=== PATIENT | male | born 1990 | race African-American/Black ===

== ENCOUNTER 2017-11-23 00:34 | Emergency (ER) | payer OTHER ==
[2017-11-23] MEDS: IBUPROFEN 600 MG TAB PO (02:15)
[2017-11-23] MEDS: PSEUDOEPHEDRINE 30 MG TAB PO (02:15)
== END 2017-11-23 02:40 | disposition home or self-care (01) ==
LOC: M ED 00:34
DX: J06.9 Acute upper respiratory infection, unspecified (principal)
CPT/HCPCS: 99284

== ENCOUNTER 2018-05-17 19:25 | Emergency (ER) | payer OTHER ==
[~2018-05-17] VITALS: Ht 188 cm; Wt 93.2 kg
[~2018-05-17 19:25] MED LIST: IBUP-1022 PO; PSEU30TA21 PO
[2018-05-17 19:26] VITALS: BP 156/87
[2018-05-17] MEDS ORDERED: CYCL10TA PO (20:34)
[2018-05-17] MEDS ORDERED: KETO10TAB PO (20:34)
[2018-05-17] MEDS ORDERED: CYCLOBENZAPRINE 10 MG TAB PO ONE (20:45)
[2018-05-17] MEDS ORDERED: KETOROLAC TROMETHAMINE 10 MG TAB PO ONE (20:45)
== END 2018-05-17 20:59 | disposition home or self-care (01) ==
LOC: M ED 19:25
DX: S16.1XXA Strain of muscle, fascia and tendon at neck level, initial encounter (principal); V89.2XXA Person injured in unspecified motor-vehicle accident, traffic, initial encounter; Y92.410 Unspecified street and highway as the place of occurrence of the external cause

== ENCOUNTER 2018-05-21 17:30 | Emergency (ER) | payer OTHER ==
[~2018-05-21] VITALS: Ht 182.9 cm; Wt 93.2 kg
[~2018-05-21 17:30] MED LIST changes: +CYCL10TA PO; +KETO10TAB PO
[2018-05-21] MEDS ORDERED: NAPROXEN 250 MG TAB PO ONE (20:30)
[2018-05-21 20:52] VITALS: BP 136/85
--- NOTE | 2018-05-22 08:16 | REP ---
Thoracic spine three views: Vertebral body heights are normal. No compression deformities. Alignment is normal. There is no listhesis. There is scoliosis convex right in the mid thoracic spine. Mineralization is normal. Pedicles are unremarkable. Impression: Scoliosis. No compression deformity. Otherwise, negative thoracic spine. Electronically Signed by Quinn Ly MD 05/22/2018 08:07 A
--- NOTE | 2018-05-22 12:05 | REP ---
LEFT WRIST: Four views left wrist are performed. No fracture is seen. There may be mild dorsal displacement of the distal end of the ulna. IMPRESSION: No acute fracture. Possible mild dorsal displacement of the distal ulna may indicate underlying ligamentous disruption. Electronically Signed by Quinn Fry MD 05/22/2018 11:29 P
--- NOTE | 2018-05-23 12:13 | ED PDOC ---
Post-Departure Follow-Up ft george subramanian faxed formal report of left wrist film for fu Chris Medellin MD May 23, 2018 12:13
== END 2018-05-21 20:58 | disposition home or self-care (01) ==
LOC: M ED 17:30
DX: S63.095A Other dislocation of left wrist and hand, initial encounter (principal); W00.9XXA Unspecified fall due to ice and snow, initial encounter; Y92.89 Other specified places as the place of occurrence of the external cause; M54.9 Dorsalgia, unspecified

== ENCOUNTER 2019-02-14 22:33 | Inpatient (IN) | payer OTHER ==
[~2019-02-14] VITALS: Ht 182.9 cm; Wt 99.5 kg
[2019-02-14] MEDS ORDERED: ASPI81TA85 PO (22:51)
[2019-02-14] MEDS ORDERED: NITROGLYCERIN 0.4 MG SUBL TABLET SL PRN (23:15)
[2019-02-14] MEDS ORDERED: ASPIRIN 81 MG CHEW TABLET PO ONE (23:15)
[2019-02-14 23:18] LABS: BASO % 0.4 % (0.0-1.0); EOS # 0.1 10^3/uL (0.0-0.5); EOS % 1.3 % (0.0-3.0); HEMATOCRIT 40.4 % (42.0-52.0); LYMPH # 3.2 10^3/uL (1.5-5.0); MEAN CORPUSCULAR HEMOGLOBIN 27.6 pg (27.0-33.0); MEAN CORPUSCULAR HGB CONC 32.2 g/dl (32.0-36.5); MEAN CORPUSCULAR VOLUME 85.8 fl (80.0-96.0); MONO # 0.5 10^3/uL (0.0-0.8); MONO % 7.6 % (0.0-5.0); NEUTROPHILS % 43.6 % (36.0-66.0); PLATELET COUNT, AUTOMATED 256 10^3/uL (150-450); RED BLOOD COUNT 4.71 10^6/uL (4.30-6.10); WHITE BLOOD COUNT 6.8 10^3/uL (4.0-10.0)
[2019-02-14 23:30] LABS: INR 1.03; PARTIAL THROMBOPLASTIN TIME 28.1 SECONDS (25.0-38.4); PROTHROMBIN TIME 13.3 SECONDS (11.8-14.0)
[2019-02-15 00:34] LABS: ALBUMIN 4.1 GM/DL (3.2-5.2); ALT/SGPT 78 U/L (12-78); BILIRUBIN,DIRECT 0.1 MG/DL (0.0-0.2); BILIRUBIN,TOTAL 0.3 MG/DL (0.2-1.0); BLOOD UREA NITROGEN 15 MG/DL (7-18); CARBON DIOXIDE LEVEL 29 MEQ/L (21-32); CHLORIDE LEVEL 106 MEQ/L (98-107); CK-MB VALUE MASS 3.9 NG/ML (<3.6); CPK CREATINE PHOSPHOKINASE 1507 U/L (39-308); CREATININE FOR GFR 1.23 MG/DL (0.70-1.30); FREE T4 0.88 NG/DL (0.76-1.46); GLOMERULAR FILTRATION RATE > 60.0 (>60); GLUCOSE, FASTING 89 MG/DL (70-100); LIPASE 130 U/L (73-393); MB/CK RELATIVE INDEX 0.26 (< OR =4); POTASSIUM SERUM 3.8 MEQ/L (3.5-5.1); SODIUM LEVEL 142 MEQ/L (136-145); TOTAL PROTEIN 7.7 GM/DL (6.4-8.2); TROPONIN I < 0.02 NG/ML (< 0.10)
[2019-02-15] MEDS ORDERED: ISOVUE-370 76% 100ML VIAL (Q9967) As Ordered ONE (00:40)
[2019-02-15] MEDS ORDERED: NS 1,000 ML IV ONE ×4 (00:45→03:30)
--- NOTE | 2019-02-15 01:17 | REPVR ---
PROCEDURE INFORMATION: Exam: CT Angiography Chest With Contrast Exam date and time: 02/15/2019 12:35 AM Clinical history: 28 years old, male; Left-sided chest pain; Additional Info: L pleuritic chest pain TECHNIQUE: Imaging protocol: Computed tomographic angiography of the chest with intravenous contrast. 3D rendering: MIP reconstructed images were created and reviewed. Radiation optimization: All CT scans at this facility use at least one of these dose optimization techniques: automated exposure control; mA and/or kV adjustment per patient size (includes targeted exams where dose is matched to clinical indication); or iterative reconstruction. COMPARISON: CR Chest, 2 view PA, Lat 02/14/2019 11:14 PM FINDINGS: Limitations: Examination is limited by motion artifact. Pulmonary arteries: Normal. No pulmonary emboli. Aorta: Suboptimal opacification of the aorta. No aortic aneurysm. No aortic dissection. Lungs: Unremarkable. No consolidation. No masses. Pleural space: Unremarkable. No pneumothorax. No pleural effusion. Heart: Unremarkable. No cardiomegaly. No pericardial effusion. Lymph nodes: Unremarkable. No enlarged lymph nodes. Bones/joints: Unremarkable. No acute fracture. Soft tissues: Unremarkable. IMPRESSION: 1. Negative for pulmonary embolism. 2. No CT findings to suggest source of left chest pain. Electronically signed by: Gita Sanchez On 02/15/2019 01:17:02 AM
[2019-02-15] MEDS ORDERED: ASPI-161 PO (01:49)
[2019-02-15] MEDS ORDERED: COLC1TAB13 PO (02:13)
--- NOTE | 2019-02-15 02:36 | HPEPDOC ---
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 He reports that his recently and since then he has been on leave and traveling, visiting family. . He did see urgent care for blood pressure check. On 01/10/2019 and was found to have blood pressure 164/102. This morning he attempted to work out but was easily winded. This evening, as he was sitting and watching TV he developed 8/10 chest pain on his left side that radiated to his back which feels very similar to his previous pericarditis pain. He is currently taking aspirin and another medication for which she cannot remember the name prescribed to him in [place] when he had pericarditis. He will see cardiology in [place] on 03/02/2019. REVIEW OF SYSTEMS: CONSTITUTIONAL: Feels well. No fever or chills HEENT: denies vision changes, no sinus problems, denies any trouble swallowing CARDIOVASCULAR: Reports sharp left-sided chest pain radiating to his back, with some tingling and numbness in upper extremities RESPIRATORY: Denies any shortness of breath GENITOURINARY: No dysuria MUSCULOSKELETAL: Denies any joint/muscle pain GASTROINTESTINAL: Denies abdominal pain, no nausea/vomiting/diarrhea SKIN: No new rashes or lesions NEUROLOGICAL: No loss of sensation PSYCHIATRIC: Reports normal mood, no delusions or hallucinations ENDOCRINE: No hot/cold intolerance HEMATOLOGIC/LYMPHATIC: No easy bruising, no lumps/bumps ALLERGIC/IMMUNOLOGIC: No sinus symptoms PAST MEDICAL HISTORY: 1. Pericarditis, diagnosed in [place] December 2018, treated with aspirin SOCIAL HISTORY: Denies smoking, denies alcohol, denies illicit drugs. Denies use of energy drinks FAMILY HISTORY: No cardiac history in the family ALLERGIES: Please see below. HOME MEDICATIONS: Please see below. PHYSICAL EXAMINATION: VITAL SIGNS: Please see below. GENERAL APPEARANCE: Laying in bed, appears stated age, no acute distress, calm, cooperative HEENT: EOMI, PERRLA, neck is supple with no thyromegaly or lymphadenopathy RESPIRATORY: Lungs are clear to auscultation bilaterally with no adventitious breath sounds appreciated CARDIOVASCULAR: no JVD, RRR,no murmurs/rubs/gallops, chest pain not reproducible with palpation ABDOMEN: Soft, nontender to palpation in all four quadrants, no masses/organomegaly EXTREMITIES: no clubbing, cyanosis or edema noted NEUROLOGICAL: No obvious focal deficits PSYCHIATRIC: normal mood/affect Skin: No rashes or ulcers. LN: No significant cervical or inguinal lymphadenopathy LABORATORY DATA: See below. IMAGING: CTA: FINDINGS: "Limitations: Examination is limited by motion artifact. Pulmonary arteries: Normal. No pulmonary emboli. Aorta: Suboptimal opacification of the aorta. No aortic aneurysm. No aortic dissection. Lungs: Unremarkable. No consolidation. No masses. Pleural space: Unremarkable. No pneumothorax. No pleural effusion. Heart: Unremarkable. No cardiomegaly. No pericardial effusion. Lymph nodes: Unremarkable. No enlarged lymph nodes. Bones/joints: Unremarkable. No acute fracture. Soft tissues: Unremarkable. IMPRESSION: 1. Negative for pulmonary embolism. 2. No CT findings to suggest source of left chest pain." EKG: NSR, bradycardia (58) with early repolarization but no ST changes MICROBIOLOGY: Please see below. 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 PLAN: 1. Chest pain: likely 2/2 recurrent pericarditis pain vs anxiety. The patient does report a significant amount of stress and physical symptoms of stress since his last November. -Troponins negative -EKG negative for ischemic event: NSR, bradycardia (58) with early repolarization but no ST changes -Continue ASA -Nitroglycerin PRN 2. Rhabdomyolysis: CK found to be 1507. Patient does report he may have overexe rted himself while exercising this morning. He has been on leave for several months and is just now starting to get back into exercise routine. -Normal saline IV fluids 150 mL/h -Will recheck CK level in a.m. 3. HTN: Likely 2/2 pain -Will monitor and treat as needed 4. Bereavement/mood disorder: -Patient will likely need psychiatry follow up in the outpatient setting DISPO: Pending improvement clinical course Vital Signs Vital Signs Date Time Temp Pulse Resp B/P (MAP) Pulse Ox O2 Delivery O2 Flow Rate FiO2 02/15/19 01:01 02/15/19 01:00 60 12 100 02/14/19 22:33 97.8 Room Air Laboratory Data Labs 24H Laboratory Tests 2 02/14/19 23:11: Immature Granulocyte % (Auto) 0.1, Neutrophils (%) (Auto) 43.6, Lymphocytes (%) (Auto) 47.0H, Monocytes (%) (Auto) 7.6H, Eosinophils (%) (Auto) 1.3, Basophils (%) (Auto) 0.4, Neutrophils # (Auto) 3.0, Lymphocytes # (Auto) 3.2, Monocytes # (Auto) 0.5, Eosinophils # (Auto) 0.1, Basophils # (Auto) 0.0, Nucleated Red Blood Cells % (auto) 0.0, Prothrombin Time 13.3, Prothromb Time International Ratio 1.03, Activated Partial Thromboplast Time 28.1, Anion Gap 7L, Glomerular Filtration Rate > 60.0, Calcium Level 9.0, Total Bilirubin 0.3, Direct Bilirubin 0.1, Aspartate Amino Transf (AST/SGOT) 52H, Alanine Aminotransferase (ALT/SGPT) 78, Alkaline Phosphatase 71, Total Creatine Kinase 1507H, Creatine Kinase MB 3.9H, Creatine Kinase MB Relative Index 0.26, Troponin I < 0.02, Total Protein 7.7, Albumin 4.1, Albumin/Globulin Ratio 1.14, Lipase 130, Thyroid Stimulating Hormone (TSH) 2.290, Free Thyroxine 0.88 CBC/BMP Laboratory Tests 02/14/19 23:11 Home Medications Scheduled Amlodipine Besylate (Norvasc) 5 Mg Tablet, 1 TAB PO DAILY Aspirin (Aspirin EC) 81 Mg Tablet.dr, 81 MG PO DAILY Allergies Coded Allergies: No Known Allergies (Unverified , 11/23/17) GME ATTESTATION GME ATTESTATION My faculty preceptor for this patient encounter was physically present during the encounter and was fully available. All aspects of the patient interview, examination, medical decision making process, and medical care plan development were reviewed and approved by the faculty preceptor. The faculty preceptor is aware and concurs with the plan as stated in the body of this note and will attest to such by his/her cosignature. ATTENDING NOTE I examined Mr. Jorge Alberto Son at approximately 1:45AM, discussed the case with and agree with the findings as documented with the addition of the following. is a 28 yr old M in active duty w PMH of pericarditis who presents w c/o of intermittent left sided chest pain that is similar to the pain that he had when he was diagnosed with pericarditis. He is unsure of the cause of the pericarditis and was unable to follow up with his doctors in [place]. His physical exam was unremarkable. The chest pain was not reproducable with palpation of the chest and had resolved at the time of evaluation. 1.Chest Pain The EKG showed ST segment elevation of greater than 2mm at V2-V4 along with cruz ges c/w LVH but his troponin was wnl. Non-ACS causes of EKG abnormalities include accelerated hypertension, significant LVH, SVTs, and cardiomyopathies Plan: admit to [facility] / telemetry / f/u serial EKGs and troponins / obtain records from [facility] in [place] to determine the cause of the pericarditis (viral, autoimmune ect ??) / manage HTN / the day time team can determine if an Echo is warranted to determine if he has LVH 2. Newly Diagnosed Hypertension His SBP was as high as the 160s His serum Ca & TSH were wnl therefore primary hyperparathyroidsm and hyperthyrodism are unlikely causes of his HTN The uncontrolled HTN is likey the reason for the EKG changes. Plan: start amlodipine 5mg daily / since he is fairly young he will need a work up to r/o secondary causes of HTN along with an ambulatory blood pressure monitor which can be done on an out patient basis. 3. Elevated CPK/Rhabdo -likely exercise induced as the patient reports that he has been more physically active lately as he is trying to "get back into shape" Plan: IVF/ trend CPK & Cr to ensure that he doesn't develop ARTURO 4.Pericarditis Plan:c/w ASA and Colchicine no need for DVT Px because he is ambulatory Disposition pending clinical course SAE YAN MD Feb 15, 2019 02:35 PATRICIA COELHO MD Feb 15, 2019 03:09
[2019-02-15] MEDS ORDERED: LISINOPRIL *2.5 MG* TAB PO SCH (03:15)
[2019-02-15 04:30] VITALS: BP 152/75
[2019-02-15] MEDS: NS 1,000 ML IV SCH ×3 (06:02→15:50)
[2019-02-15 07:07] LABS: TROPONIN I < 0.02 NG/ML (< 0.10)
--- NOTE | 2019-02-15 07:10 | ECGEPIP ---
[facility] - ED Test Date: 2019-02-15 Pat Name: SHANELL MUSTAFA Department: Room: [place] [address] Gender: Male [employer] Architect: GHULAM : 1990 Requested By: WYATT Kumar Order Number: [id number] Reading MD: Jack Adam Measurements Intervals [place] Rate: 59 P: 35 NC: 187 QRS: 28 QRSD: 96 T: 25 QT: 387 QTc: 386 Interpretive Statements SINUS BRADYCARDIA BENIGN EARLY REPOLARIZATION SIMILAR TO 02/14/19 Electronically Signed on 02-15-2019 7:10:11 EST by Jack Adam
--- NOTE | 2019-02-15 08:10 | REP ---
Clinical: Acute chest pain . Comparison: None . Technique: PA and lateral. Findings: The mediastinum and cardiac silhouette are normal. The lung amin are clear and without acute consolidation, effusion, or pneumothorax. The skeletal structures are intact and normal. Impression: 1. No acute cardiopulmonary process. Electronically Signed by Seun Blevins MD 02/15/2019 08:01 A
[2019-02-15 08:18] LABS: C REACTIVE PROTEIN QUANTITATIV < 0.30 MG/DL (0.00-0.30); CPK CREATINE PHOSPHOKINASE 1356 U/L (39-308)
--- NOTE | 2019-02-15 08:33 | ECGEPIP ---
[facility] Test Date: 2019-02-14 Pat Name: SHANELL MUSTAFA Department: Room: [place] [address] Gender: Male Transfer Professor: GHULAM : 1990 Requested By: ALYSSIA Kang PA-C Order Number: [id number] Reading MD: Charles Mejía Measurements Intervals [place] Rate: 58 P: 44 NC: 187 QRS: 37 QRSD: 98 T: 26 QT: 399 QTc: 395 Interpretive Statements Sinus bradycardia Early repolarization; correlate clinically Comparison tracing not on file Electronically Signed on 02-15-2019 8:33:09 EST by Charles Mejía
[2019-02-15 08:38] VITALS: BP 154/90
[2019-02-15] MEDS ORDERED: ASPIRIN 325 MG TAB PO SCH (09:00)
[2019-02-15 10:00] VITALS: BP 146/92
--- NOTE | 2019-02-15 11:14 | IPNPDOC ---
Text Note Date of Service The patient was seen on 02/15/19. 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 EKG was unremarkable, cardiac enzymes have been negative. Patient was examined this morning. he denied chest pain, denies shortness of breath, deny palpitation. His history significant for significant personal sadness, his in november of this year. OBJECTIVE: PHYSICAL EXAMINATION: GENERAL APPEARANCE: Alert no acute distress. SKIN: Warm, well perfused. LUNGS: Clear to auscultation bilaterally. HEART: Normal S1, S2. No murmurs, no rubs, no gallops ABDOMEN: Soft. No masses. Bowel sounds are present. EXTREMITIES: Moves all extremities equally. No gross deformities. PULSES: 2+ upper and lower extremity . LABORATORY DATA: Please see below. IMAGING: Chest Xray Impression: 1. No acute cardiopulmonary process. Chest CT 1. Negative for pulmonary embolism. 2. No CT findings to suggest source of left chest pain. 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 PLAN: 1. Chest pain - likely 2/2 patient's physical exertion, possibly 2/2 anxiety and recent life stressors, less likely 2/2 pericarditis. He has been treated for pericarditis in the past. - Patient has also reported that he recently started exercising a day prior and on the day of admission -Significant stress from passed -Troponin negative -EKG negative for ischemic event: NSR, bradycardia (58) with early repolarization but no ST changes -Start patient on hydroxyzine 50 mg every 6 hours for anxiety -Patient currently has a psychiatrist, encourage patient to continue using psychiatry service 2. Rhabdomyolysis: CK found to be 1507. - Will DC colchicine, as it is known to cause rhabdomyolysis as a side effect. -Status post 4 L boluses -Repeat this morning is 1356 -Normal saline IV fluids 150 mL/h -Will recheck CK level in a.m. 3. HTN - c/w Amlodipine and Lisinopril - Will give single dose of chlorthalidone 12.5 mg - Will likely need to increase dose of current medications - Will have outpatient follow up with PCP 4. Bereavement/mood disorder: -Patient follows up with her psychiatrist, encouraged to continue doing so. He is currently planning to relocate to [place] to be closer to his family DISPO: Pending improvement in pain, IVF VS,Fishbone, I+O VS, Fishbone, I+O Laboratory Tests 02/14/19 23:11 Vital Signs Date Time Temp Pulse Resp B/P (MAP) Pulse Ox O2 Delivery O2 Flow Rate FiO2 02/15/19 10:00 98.3 73 16 146/92 (110) 100 Room Air I&O- Last 24 Hours up to 6 AM 02/15/19 06:00 Intake Total 3300 ml Output Total 0 ml Balance 3300 ml GME ATTESTATION GME ATTESTATION My faculty preceptor for this patient encounter was physically present during the encounter and was fully available. All aspects of the patient interview, examination, medical decision making process, and medical care plan development were reviewed and approved by the faculty preceptor. The faculty preceptor is aware and concurs with the plan as stated in the body of this note and will attest to such by his/her cosignature. ATTENDING NOTE I, Jerod Anna, have independently examined this patient and performed my own physical exam, as well as reviewed the documentation and edited where necessary. I have discussed in detail with the resident / student the findings and plan of treatment as documented by the resident / student and edited their note. I agree with their findings and treatment plan and have edited their documentation. I will continue to follow the patient during this hospital stay. PAVEL AGUILERA DO Feb 15, 2019 11:14 JEROD ANNA MD Feb 15, 2019 14:42
[2019-02-15] MEDS ORDERED: CHLORTHALIDONE 12.5MG PER 1/2 TABLET PO SCH (11:15)
[2019-02-15] MEDS: **hydrALAZINE** 50 MG TAB PO SCH ×2 (12:00→18:00)
[2019-02-15 14:00] VITALS: BP 151/88
[2019-02-15] MEDS ORDERED: NORV5TAB PO (15:57)
--- NOTE | 2019-02-15 17:22 | DS.PDOC ---
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 His story was significant for the recent passing of his . On the morning of admission he stated that he tired to work out but became winded so he stopped. Later that night he developed chest pain while sitting and watching TV. The pain was 8/10 chest pain on his left s tarah that radiated to his back which felt very similar to his previous pericarditis pain. He was currently taking aspirin and colchicine for pericarditis. He will see cardiology in [place] on 03/02/2019. On initial ED evaluation, he was started noticed to had elevated CK indicative for rhabdomyolysis. Initial EKG was unremarkable for pericarditis. HOSPITAL COURSE: 1. Chest pain - likely 2/2 patient's physical exertion, possibly 2/2 anxiety and recent life stressors, less likely 2/2 pericarditis. He has been treated for pericarditis in the past. - Patient has also reported that he recently started exercising a day prior and on the day of admission -Significant stress from passed -Troponin negative -EKG negative for ischemic event: NSR, bradycardia (58) with early repolarization but no ST changes -Start patient on hydroxyzine 50 mg every 6 hours for anxiety -Patient currently has a psychiatrist, encourage patient to continue using psychiatry service 2. Rhabdomyolysis: CK found to be 1507. - Will DC colchicine, as it is known to cause rhabdomyolysis as a side effect. -Status post 4 L boluses -Repeat this morning is 1356 -Normal saline IV fluids 150 mL/h -Will recheck CK level in a.m. 3. HTN - c/w Amlodipine and Lisinopril - Will give single dose of chlorthalidone 12.5 mg - Will likely need to increase dose of current medications - Will have outpatient follow up with PCP 4. Bereavement/mood disorder: -Patient follows up with her psychiatrist, encouraged to continue doing so. He is currently planning to relocate to [place] to be closer to his family DISPO: Pending improvement in pain, IVF DISCHARGE MEDICATIONS: Please see below. ALLERGIES: Please see below. PHYSICAL EXAMINATION ON DISCHARGE: VITAL SIGNS: Please see below. PHYSICAL EXAMINATION: GENERAL APPEARANCE: Alert no acute distress. SKIN: Warm, well perfused. LUNGS: Clear to auscultation bilaterally. HEART: Normal S1, S2. No murmurs, no rubs, no gallops ABDOMEN: Soft. No masses. Bowel sounds are present. EXTREMITIES: Moves all extremities equally. No gross deformities. PULSES: 2+ upper and lower extremity . LABORATORY DATA: Please see below. IMAGING: IMAGING: Chest Xray Impression: 1. No acute cardiopulmonary process. Chest CT 1. Negative for pulmonary embolism. 2. No CT findings to suggest source of left chest pain. Echocardiogram CONCLUSIONS: 1. Study is of good technical quality. 2. Normal left ventricular (LV) size with normal LV systolic function and normal diastolic function. Mild left ventricular hypertrophy. 3. No hemodynamically significant valvular disease. 4. Probably normal central venous pressure and pulmonary artery pressure. PROGNOSIS: Stable ACTIVITY: As tolerated DIET: As tolerated DISPOSITION: Home DISCHARGE INSTRUCTIONS: 1. Follow up with PCP within 7 days 2. Remain compliant with treatment plan and medications 3. Return to the ER if you experience any problems DISCHARGE CONDITION: Stable TIME SPENT ON DISCHARGE: 35 minutes Vital Signs/I&Os Vital Signs Date Time Temp Pulse Resp B/P (MAP) Pulse Ox O2 Delivery O2 Flow Rate FiO2 02/15/19 14:00 98.1 67 18 151/88 (109) 100 Room Air I&O- Last 24 Hours up to 6 AM 02/15/19 06:00 Intake Total 3300 ml Output Total 0 ml Balance 3300 ml Laboratory Data Labs 24H Laboratory Tests 2 02/14/19 23:11: Immature Granulocyte % (Auto) 0.1, Neutrophils (%) (Auto) 43.6, Lymphocytes (%) (Auto) 47.0H, Monocytes (%) (Auto) 7.6H, Eosinophils (%) (Auto) 1.3, Basophils (%) (Auto) 0.4, Neutrophils # (Auto) 3.0, Lymphocytes # (Auto) 3.2, Monocytes # (Auto) 0.5, Eosinophils # (Auto) 0.1, Basophils # (Auto) 0.0, Nucleated Red Blood Cells % (auto) 0.0, Prothrombin Time 13.3, Prothromb Time International Ratio 1.03, Activated Partial Thromboplast Time 28.1, Anion Gap 7L, Glomerular Filtration Rate > 60.0, Calcium Level 9.0, Total Bilirubin 0.3, Direct Bilirubin 0.1, Aspartate Amino Transf (AST/SGOT) 52H, Alanine Aminotransferase (ALT/SGPT) 78, Alkaline Phosphatase 71, Total Creatine Kinase 1507H, Creatine Kinase MB 3.9H, Creatine Kinase MB Relative Index 0.26, Troponin I < 0.02, Total Protein 7.7, Albumin 4.1, Albumin/Globulin Ratio 1.14, Lipase 130, Thyroid Stimulating Hormone (TSH) 2.290, Free Thyroxine 0.88 02/15/19 06:20: Total Creatine Kinase 1356H, Troponin I < 0.02, C-Reactive Protein, Quantitative < 0.30 02/15/19 06:28: Erythrocyte Sedimentation Rate 5 02/15/19 11:55: Troponin I < 0.02 CBC/BMP Laboratory Tests 02/14/19 23:11 Discharge Medications Scheduled Amlodipine Besylate (Norvasc) 5 Mg Tablet, 1 TAB PO DAILY Aspirin (Aspirin EC) 81 Mg Tablet.dr, 81 MG PO DAILY, (Reported) Allergies Coded Allergies: No Known Allergies (Unverified , 11/23/17) GME ATTESTATION GME ATTESTATION My faculty preceptor for this patient encounter was physically present during the encounter and was fully available. All aspects of the patient interview, examination, medical decision making process, and medical care plan development were reviewed and approved by the faculty preceptor. The faculty preceptor is aware and concurs with the plan as stated in the body of this note and will attest to such by his/her cosignature. ATTENDING NOTE I, Jerod Anna, have independently examined this patient and performed my own physical exam, as well as reviewed the documentation and edited where necessary. I have discussed in detail with the resident / student the findings and plan of treatment as documented by the resident / student and edited their note. I agree with their findings and treatment plan and have edited their documentation. I will continue to follow the patient during this hospital stay. Time spent on discharge 35 minutes PAVEL AGUILERA DO Feb 15, 2019 16:52 JEROD ANNA MD Feb 16, 2019 11:20
[2019-02-15 18:00] VITALS: BP 148/86
--- NOTE | 2019-02-15 18:37 | ECHO ---
DATE OF PROCEDURE: 02/15/2019 REFERRING PHYSICIAN: Dr. Jovi Lainez INDICATION: Abnormal ECG. Height 183 cm, weight 100 kg. DIMENSIONS; IVS: 1.3 LV: 4.7 LVPW: 1.2 LA: 3.5 Aorta: 3.1 IVC: 2.0 FINDINGS: The study is of good technical quality. The patient is in sinus rhythm. Left ventricle is normal size and systolic function with estimated left ventricular ejection fraction (LVEF) approximately 65-70%. Mild left ventricular hypertrophy is noted. Right ventricle is also normal size and systolic function. Both atria appear normal. All four cardiac valves were reasonably well seen and appear normal. Doppler interrogation reveals competent aortic valve without stenosis or insufficiency. There is trace mitral insufficiency and trace tricuspid insufficiency. Calculated pulmonary artery pressure is within normal limits based on poor quality TR jet. Pulmonic valve exhibits trace insufficiency. Mitral inflow pattern and tissue Doppler imaging of mitral annulus revealed normal diastolic function. CONCLUSIONS: 1. Study is of good technical quality. 2. Normal left ventricular (LV) size with normal LV systolic function and normal diastolic function. Mild left ventricular hypertrophy. 3. No hemodynamically significant valvular disease. 4. Probably normal central venous pressure and pulmonary artery pressure. COMMENT: Subacute bacterial endocarditis (SBE) prophylaxis is not recommended.
== END 2019-02-15 19:29 | disposition home or self-care (01) | DRG 558 ==
LOC: M ED 22:33 → M ED INP 22:34 → INTOOBSV 02-15 03:13 → OBSVTOIN 02-15 03:13 → M MSPAV 02-15 04:33
PROVIDERS: ADMIT Internal Medicine; ATTEND Internal Medicine
DX: M62.82 Rhabdomyolysis (principal); R07.89 Other chest pain; I10 Essential (primary) hypertension; F41.9 Anxiety disorder, unspecified; F39 Unspecified mood [affective] disorder; Z79.82 Long term (current) use of aspirin; Z79.899 Other long term (current) drug therapy; Z86.79 Personal history of other diseases of the circulatory system; F43.21 Adjustment disorder with depressed mood

== ENCOUNTER 2019-05-25 16:12 | Emergency (ER) | payer OTHER ==
[~2019-05-25] VITALS: Ht 182.9 cm; Wt 98.2 kg
[~2019-05-25 16:12] MED LIST changes: +ASPI-161 PO; +ASPI81TA85 PO; +COLC1TAB13 PO; +NORV5TAB PO
[2019-05-25 17:32] LABS: HEMATOCRIT 41.8 % (42.0-52.0); HEMOGLOBIN 13.6 g/dl (13.5-17.5); MEAN CORPUSCULAR HEMOGLOBIN 27.5 pg (27.0-33.0); MEAN CORPUSCULAR HGB CONC 32.5 g/dl (32.0-36.5); MEAN CORPUSCULAR VOLUME 84.6 fl (80.0-96.0); PLATELET COUNT, AUTOMATED 279 10^3/uL (150-450); RED BLOOD COUNT 4.94 10^6/uL (4.30-6.10); WHITE BLOOD COUNT 6.4 10^3/uL (4.0-10.0)
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
[2019-05-25 17:56] LABS: BLOOD UREA NITROGEN 11 MG/DL (7-18); CALCIUM LEVEL 9.5 MG/DL (8.5-10.1); CARBON DIOXIDE LEVEL 31 MEQ/L (21-32); CHLORIDE LEVEL 105 MEQ/L (98-107); CPK CREATINE PHOSPHOKINASE 818 U/L (39-308); CREATININE FOR GFR 1.14 MG/DL (0.70-1.30); GLOMERULAR FILTRATION RATE > 60.0 (>60); GLUCOSE, FASTING 74 MG/DL (70-100); SODIUM LEVEL 140 MEQ/L (136-145)
[2019-05-25] MEDS ORDERED: ACETAMINOPHEN 325 MG TAB PO ONE (18:00)
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
[2019-05-25] MEDS ORDERED: CYCL10TA PO (18:04)
[2019-05-25 18:11] VITALS: BP 143/83
== END 2019-05-25 18:16 | disposition home or self-care (01) ==
LOC: M ED 16:12
DX: S13.4XXA Sprain of ligaments of cervical spine, initial encounter (principal); S63.501A Unspecified sprain of right wrist, initial encounter; S63.502A Unspecified sprain of left wrist, initial encounter; V49.49XA Driver injured in collision with other motor vehicles in traffic accident, initial encounter; Y92.410 Unspecified street and highway as the place of occurrence of the external cause

== ENCOUNTER → 2019-10-10 | Outpatient (REF) | payer OTHER ==
[~2019-10-10] MED LIST changes: +CYCL-707 PO; -CYCL10TA PO
== END ==
LOC: M LAB REF 16:41
PROVIDERS: ATTEND Internal Medicine Nephrology
DX: M62.82 Rhabdomyolysis (principal)

== ENCOUNTER 2020-05-05 09:10 | Emergency (ER) | payer OTHER ==
[~2020-05-05] VITALS: Ht 182.9 cm; Wt 107.9 kg
[~2020-05-05 09:10] MED LIST changes: -ASPI81TA85 PO; +ASPI81TA86 PO; +COLC0.6T47 PO; -COLC1TAB13 PO
[2020-05-05 09:57] LABS: BASO % 0.4 % (0.0-1.0); EOS % 0.7 % (0.0-3.0); HEMATOCRIT 42.5 % (42.0-52.0); LYMPH % 36.1 % (24.0-44.0); MEAN CORPUSCULAR HEMOGLOBIN 27.7 pg (27.0-33.0); MEAN CORPUSCULAR HGB CONC 32.9 g/dl (32.0-36.5); MEAN CORPUSCULAR VOLUME 84.2 fl (80.0-96.0); MONO # 0.4 10^3/uL (0.0-0.8); MONO % 6.6 % (0.0-5.0); NEUTROPHILS # 3.2 10^3/uL (1.5-8.5); PLATELET COUNT, AUTOMATED 278 10^3/uL (150-450); RED BLOOD COUNT 5.05 10^6/uL (4.30-6.10); WHITE BLOOD COUNT 5.6 10^3/uL (4.0-10.0)
--- NOTE | 2020-05-05 10:13 | REP ---
INDICATION: CHEST PAIN COMPARISON: 02/14/2019 TECHNIQUE: Portable AP view of the chest FINDINGS: The mediastinum and cardiac silhouette are stable and within normal limits for portable technique. The lung amin are clear without acute consolidation, effusion, or pneumothorax. Skeletal structures are intact. IMPRESSION: No acute cardiopulmonary process appreciated. <Electronically signed by Seun Blevins > 05/05/20 [id number]
[2020-05-05 10:15] LABS: ERYTHROCYTE SEDIMENTATION RATE 7 mm/hr (0-15)
[2020-05-05] MEDS ORDERED: AMLO1TAB24 PO (10:18)
[2020-05-05 10:36] LABS: ALBUMIN 4.2 GM/DL (3.2-5.2); ALT/SGPT 90 U/L (12-78); BILIRUBIN,DIRECT 0.1 MG/DL (0.0-0.2); BILIRUBIN,TOTAL 0.2 MG/DL (0.2-1.0); BLOOD UREA NITROGEN 12 MG/DL (7-18); CALCIUM LEVEL 9.3 MG/DL (8.5-10.1); CARBON DIOXIDE LEVEL 30 MEQ/L (21-32); CHLORIDE LEVEL 103 MEQ/L (98-107); CK-MB VALUE MASS 2.8 NG/ML (<3.6); CPK CREATINE PHOSPHOKINASE 1073 U/L (39-308); CREATININE FOR GFR 1.34 MG/DL (0.70-1.30); GLOMERULAR FILTRATION RATE > 60.0 (>60); GLUCOSE, FASTING 96 MG/DL (70-100); LIPASE 111 U/L (73-393); MAGNESIUM LEVEL 2.1 MG/DL (1.8-2.4); MB/CK RELATIVE INDEX 0.26 (< OR =4); POTASSIUM SERUM 3.8 MEQ/L (3.5-5.1); SODIUM LEVEL 137 MEQ/L (136-145); TROPONIN I < 0.02 NG/ML (< 0.10)
[2020-05-05] MEDS ORDERED: NS 1,000 ML IV ONE ×2 (11:00)
[2020-05-05 14:42] LABS: AMPHETAMINES LEVEL URINE NEGATIVE (NEGATIVE); BARBITURATES URINE NEGATIVE (NEGATIVE); BENZODIAZEPINES URINE NEGATIVE (NEGATIVE); CANNABINOIDS URINE NEGATIVE (NEGATIVE); COCAINE METABOLITE URINE NEGATIVE (NEGATIVE); METHADONE URINE NEGATIVE (NEGATIVE); OPIATES URINE NEGATIVE (NEGATIVE); PHENCYCLIDINE URINE NEGATIVE (NEGATIVE)
[2020-05-05 14:45] VITALS: BP 147/86
--- NOTE | 2020-05-07 14:19 | ECGEPIP ---
[facility] - ED Test Date: 2020-05-05 Pat Name: SHANELL MUSTAFA Department: Room: - Gender: Male [employer]: : [id number] Requested By: Harriett Berman Order Number: [id number] Reading MD: Harriett Berman Measurements Intervals [place] Rate: 67 P: 10 DE: 181 QRS: 22 QRSD: 96 T: 0 QT: 369 QTc: 391 Interpretive Statements SINUS RHYTHM EARLY REPOLARIZATION INCREASED RATE 02/15/19 Electronically Signed on 05-07-2020 14:19:47 EST by Harriett Berman
== END 2020-05-05 15:05 | disposition home or self-care (01) ==
LOC: M ED 09:10
DX: I10 Essential (primary) hypertension (principal); M62.82 Rhabdomyolysis

== ENCOUNTER → 2020-09-02 | Outpatient (CLI) | payer OTHER ==
[~2020-09-02] MED LIST changes: +AMLO1TAB24 PO
--- NOTE | 2020-09-09 14:59 | ECHO ---
ECHOCARDIOGRAM DATE OF PROCEDURE: 09/02/2020 Age: 30 Gender: Male Height: 183 cm Weight: 102 kg REFERRING PHYSICIAN: Miki Cook M.D. INDICATION: Palpitations. MEASUREMENTS: 2D Measurements: Left ventricle diastole 4.4 cm Left ventricle systole 2.9 cm Intraventricular septum 1.44 cm Posterior wall 1.34 cm Left atrium 3.4 cm Proximal ascending aorta 3.0 cm Left atrial volume index 15 cm Doppler Measurements: No aortic regurgitation No aortic stenosis LVOT velocity 104 cm/s No mitral stenosis No mitral regurgitation Mitral E velocity 71.6 cm/s Mitral A velocity 44.4 cm/s Very mild tricuspid regurgitation Trace pulmonic regurgitation MITRAL ANNULAR TISSUE DOPPLER E prime lateral 12.0 cm/s DESCRIPTION: Rhythm was sinus. Image quality was fair. No pericardial effusion. Technically difficult subcostal acoustic window. This was a 2D, M-mode, color flow Doppler, and pulsed wave Doppler examination including mitral annular tissue Doppler. CONCLUSIONS: 1. Mild concentric left ventricular hypertrophy. Normal regional LV wall motion and wall thickening. Normal LV systolic function. LVEF 60% - 65% by visual assessment. Normal LV diastolic function. 2. No pericardial effusion. 3. Otherwise normal appearing echocardiogram Doppler findings.
== END ==
LOC: M CARPUL 10:30
PROVIDERS: ATTEND Internal Medicine
DX: I51.7 Cardiomegaly (principal)

== ENCOUNTER → 2020-10-22 | Outpatient (CLI) | payer OTHER ==
--- NOTE | 2020-10-24 09:26 | SLEEPCENT ---
DATE: 10/22/2020 ORDERED BY: JAILENE Peñaloza Nocturnal polysomnography was performed for evaluation of sleep physiology in this patient with a history of excessive somnolence and nonrestorative sleep. Seven hours and 46 minutes of data were reviewed. There were 405.5 minutes of sleep identified. Sleep latency was normal at 20.5 minutes. REM sleep was delayed at 194 minutes. Sleep architecture showed some fragmentation. There were three REM cycles noted. Overall sleep efficiency was 88%. The electrocardiogram showed a sinus rhythm with an average heart rate of 60 beats per minute. Rate ranged 50 to 85. EEG showed essentially normal waveforms for wake and sleep. There was some mild alpha intrusion seen throughout. No focal EEG events were identified. There were only 11 respiratory events identified of 10 seconds in duration or greater for an apnea-hypopnea index within normal limits at 1.6. Snoring was however noted over the entire study. Arousals from respiratory events occurred 1.5 times per hour. There were no oxygen desaturations below 90%. Some activity was noted in the limb leads. There were 3 trains of 30 events with a limb movement arousal index of 8.6. IMPRESSION: Periodic limb movement disorder G47.61). Limb movement arousal index is 8.6. RECOMMENDATION: Interventions to reduce the frequency of arousal from limb activity should improve the quality of the patient's sleep.
== END ==
LOC: M SLEEP 20:00
PROVIDERS: ATTEND Physician Assistant
DX: G47.61 Periodic limb movement disorder (principal); R40.0 Somnolence